=== PATIENT | female | born 1935 | race Caucasian/White ===

== ENCOUNTER 2024-09-13 14:26 | Outpatient (CLI) | payer MEDICARE ==
[~2024-09-13 14:26] MED LIST: ALEN70TA60 PO; ALLO100T PO; CALC-212 PO; CALC-381 PO; CHOL400C8 PO; FURO40TA4 PO; LEVO88TA2 PO; MAGN400C PO; OMEG1CAP2 PO; OMEP20TA43 PO; OXYB5TAB21 PO; POTA10CA95 PO; SIMV-45 PO; SPIR100T5 PO; VENL75CA55 PO
== END 2024-09-13 23:59 | disposition home or self-care (01) ==
LOC: RAD 14:26
PROVIDERS: ATTEND Internal Medicine Gastroenterology
DX: R13.12 Dysphagia, oropharyngeal phase (principal); R13.10 Dysphagia, unspecified; R13.14 Dysphagia, pharyngoesophageal phase; G35 Multiple sclerosis; K44.9 Diaphragmatic hernia without obstruction or gangrene; Z79.890 Hormone replacement therapy; Z79.899 Other long term (current) drug therapy
CPT/HCPCS: 74230

== ENCOUNTER 2025-04-11 09:28 | Outpatient (CLI) | payer MEDICARE ==
--- NOTE | 2025-04-11 13:17 | VASCULAR REPORT ---
Bilateral lower extremity venous duplex Clinical History: edema Comparison: None Findings: Duplex Doppler evaluation of the deep venous systems of both lower extremities from the common femora l veins to the popliteal veins including color Doppler and spectral/pulsed waveform analysis was perf ormed. RIGHT SIDE: The common femoral vein demonstrates appropriate compressibility and waveform variability. There is compressibility/patency of the great saphenous vein at the proximal thigh. The femoral vein demonstrates appropriate compressibility and waveform variability. The deep femoral vein demonstrates appropriate compressibility and waveform variability. The popliteal vein demonstrates appropriate compressibility and waveform variability. There is normal compressibility at the tibioperoneal trunk. LEFT SIDE: The common femoral vein demonstrates appropriate compressibility and waveform variability. There is compressibility/patency of the great saphenous vein at the proximal thigh. The femoral vein demonstrates appropriate compressibility and waveform variability. The deep femoral vein demonstrates appropriate compressibility and waveform variability. The popliteal vein demonstrates appropriate compressibility and waveform variability. There is normal compressibility at the tibioperoneal trunk. Impression: No right or left femoropopliteal venous thrombosis.
== END 2025-04-11 23:59 | disposition home or self-care (01) ==
LOC: VAS 09:28
PROVIDERS: ATTEND Specialist
DX: I87.1 Compression of vein (principal); R22.43 Localized swelling, mass and lump, lower limb, bilateral; D69.6 Thrombocytopenia, unspecified
CPT/HCPCS: 93970